=== PATIENT | female | born 1990 | race Caucasian/White ===

== ENCOUNTER 2022-06-11 12:41 | Emergency (ER) | payer BC, SELFPAY ==
[2022-06-11 13:07] VITALS: BP 120/94; PULSE 117; RESP 16; O2SAT 100; BMI 24.9
--- NOTE | 2022-06-11 13:23 | CRLHL7_ITS ---
For Patients: As a result of the Century Cures Act, medical imaging exams and procedure reports are released immediately into your electronic medical record. You may view this report before your referring provider. If you have questions, please contact your health care provider. INDICATION: Left flank pain. TECHNIQUE: CT abdomen and pelvis without contrast. COMPARISON: None. FINDINGS: Lower chest: Unremarkable. Liver: Normal in size and attenuation. No suspicious masses. Gallbladder and bile ducts: Multiple gallbladder stones. No inflammation or biliary dilatation. Pancreas: Unremarkable. No mass or inflammation. Spleen: Normal in size. No masses. Adrenal glands: Normal in size. No nodules. Kidneys: Single tiny nonobstructive stone in the left kidney. No ureteral stone and no hydronephrosis. GI tract: Unremarkable. Normal in caliber. No sign of mass or inflammation. Normal appendix. Vasculature: Abdominal aorta is normal in caliber. Lymph nodes: No lymphadenopathy. Peritoneum/Abdominal Wall: Unremarkable. No sign of mass or infiltration. No free air or significant free fluid. Pelvis: Unremarkable. No pelvic masses. Bones: Unremarkable for age. IMPRESSION: Single tiny nonobstructive stone in the left kidney. No ureteral stone and no hydronephrosis. Remainder of the exam is unremarkable. No other finding to explain left flank pain. Please note that all CT scans at this facility use dose modulation, iterative reconstruction, and/or weight-based dosing when appropriate to reduce radiation dose to as low as reasonably achievable. Dictated by Guy Akhtar MD @ 06/11/2022 2:58:46 PM (Electronically Signed)
[2022-06-11 13:30] VITALS: BP 117/89; PULSE 105; RESP 14; O2SAT 98
--- NOTE | 2022-06-11 13:36 | ED_ITS ---
HPI - General Adult General Date Seen: 06/11/22 Chief complaint: Abdominal Pain Stated complaint: LT side abdominal and back pain Time Seen by Provider: 06/11/22 13:07 Source: patient History of Present Illness HPI narrative: The patient is a 32-year-old woman who presents for evaluation of left flank pain. She says she got up this morning and went to the bathroom, felt fine until she got back to the bed at which time she developed left flank pain which she rates as severe. It radiates somewhat down to the left mid abdomen. She has never had pain like this before. She denies any urinary symptoms. No fevers. She does not have any nausea or vomiting although she said she felt somewhat lightheaded because the pain was so bad. She did not have syncope. She does not have shortness of breath but it does feel somewhat hard to breathe when the pain is severe. It hurts worse to lay down and to move around, it feels best if she sitting still. She has not had any bowel changes. She has on the Depo shot for control, has no concerns about . Related Data Home Medications Medication Instructions Recorded Confirmed No Known Home Medications 06/11/22 06/11/22 Allergies Allergy/AdvReac Type Severity Reaction Status Date / Time No Known Allergies Allergy Unknown Verified 02/10/22 08:43 Review of Systems Status of ROS: Reports: 10 or more systems reviewed and unremarkable except as noted in History and below [facility] Medical History History of abnormal cervical Pap smear Surgical History History of D&C Family History Other Diabetes Social History Smoking Status: Current every day smoker What tobacco products do you use: cigarettes Do you use any of these nicotine containing products: None Second hand tobacco smoke exposure: No How often do you have a drink containing alcohol: monthly or less How many standard drinks containing alcohol do you have on a typical day: 1 or 2 AUDIT-C Alcohol total score: 1 Non-prescribed substance use: denies use service: No Exam Narrative: Exam Narrative: Vital signs as noted above. In general, an alert, well-appearing patient. She Head: Normocephalic, atraumatic. Eyes: Pupils are equal reactive. Extraocular movements are full. Conjunctivae are normal. ENT: Mucous membranes are moist. Throat is normal. Neck: Supple without lymphadenopathy. Heart: Regular rate and rhythm. No murmur or rub. Lungs: Clear bilaterally. No increased work of breathing, crackles or wheezes. Back: No CVA tenderness, no reproducible left flank tenderness to palpation. Abdomen: Soft and nontender. No organomegaly. Extremities: Well perfused. No edema. No calf tenderness. Pulses intact. Neurologic: Patient is alert and oriented to person and place. Speech is fluent. Face is symmetric. Moves all extremities equally. Affect: Normal. Skin: Warm and dry. Well perfused. Const: Vital Signs, click to edit/add: Vital Signs - 24 hr 06/11/22 13:07 Pulse Rate [Left P ulse Oximeter] 117 H Respiratory Rate 16 Blood Pressure [Ri ght Upper Arm] 120/94 H Pulse Oximetry 100 Oxygen Delivery Me thod Room Air Course Course Hospital Course: We will go ahead and place an IV and give Toradol to start for pain. She is not able to give a urine sample right now but understands will want to get that when she is able to. Pain is somewhat atypical for kidney stone in that it gets worse when she moves, but she does not have reproducible external pain so it is hard to call this musculoskeletal for certain. We will go ahead and get some labs and get a CT scan to rule out kidney stone, get a urine to rule out other urinary causes. Certainly does not look toxic, she is afebrile. She is mildly tachycardic. We will give some IV fluids and this may improve with pain control. Pain is somewhat improved although not resolved with Toradol. She had her CT scan without contrast which I reviewed. Interestingly, she does have a tiny stone in left kidney but I do not see a ureteral stone or any evidence of hydronephrosis. I do not see any other findings on the CT. It was ultimately read by Radiology as negative aside from that small renal stone. Her labs are all normal, urinalysis is negative without evidence of infection. I did do a D- dimer given the proximity to the lung bases and this was negative as well. test was negative. Overall, given the strong correlation of pain with movement, I think this is likely musculoskeletal in nature. I have recommended that we try ibuprofen and Tylenol, add in a muscle relaxer, she can use topical measures such as Biofreeze and ice, and see how she does over the next week or 2. If she is not improving she can follow up with primary care. For acute worsening such as fevers, vomiting, severe uncontrolled pain, return to the emergency department. Vital Signs Vital signs: Initial Vital Signs Temperature Source Temporal Artery Scan 06/11/22 13:07 Pulse Rate 117 H 06/11/22 13:07 Pulse Rhythm 06/11/22 13:07 Pulse Strength 3+ Normal 06/11/22 13:07 Respiratory Rate 16 06/11/22 13:07 Blood Pressure 120/94 H 06/11/22 13:07 Blood Pressure Mean 102 06/11/22 13:07 Blood Pressure Position Sitting 06/11/22 13:07 Pulse Oximetry 100 06/11/22 13:07 Oxygen Delivery Method 06/11/22 13:07 Vital Signs Pulse Rate 117 H 06/11/22 13:07 Respiratory Rate 16 06/11/22 13:07 Blood Pressure 120/94 H 06/11/22 13:07 Pulse Oximetry 100 06/11/22 13:07 Oxygen Delivery Method 06/11/22 13:07 Pulse Rate 117 H 06/11/22 13:07 Respiratory Rate 16 06/11/22 13:07 Blood Pressure 120/94 H 06/11/22 13:07 Pulse Oximetry 100 06/11/22 13:07 Oxygen Delivery Method 06/11/22 13:07 Medical Decision Making Lab Data Labs: Lab Results 06/11/22 06/11/22 06/11/22 Range/Units 13:50 13:50 13:50 WBC 7.84 (4.50-11.00) K/uL RBC 4.86 (4.00-5.20) m/uL Hgb 14.7 (12.0-16.0) gm/dL Hct 45.0 (33.0-51.0) % MCV 93 (80-100) fL MCH 30 (26-34) pg MCHC 33 (32-36) gm/dL RDW Coeff of Juanito 12.5 (11.5-15.5) % Plt Count 315 (140-440) K/uL Neut % (Auto) 68.8 (42.0-72.0) % Lymph % (Auto) 23.3 (20-44) % [place] % (Auto) 5.5 (0.0-11.0) % Eos % (Auto) 1.9 (0.0-7.0) % Baso % (Auto) 0.4 (0.0-3.0) % Neut # (Auto) 5.39 (1.7-7.0) K/uL Lymph # (Auto) 1.83 (0.90-2.90) K/uL [place] # (Auto) 0.40 (0.00-0.90) K/UL Eos # (Auto) 0.15 (0.00-0.50) K/uL Baso # (Auto) 0.03 (0.00-0.30) K/uL Abs Immat Gran (auto) 0.01 (0.00-0.30) K/uL Imm/Tot Granulo (auto) 0.1 % D-Dimer Quant (PE/DVT) < 0.27 (0.00-0.50) ug/ml Sodium 141 (135-149) mmol/L Potassium 4.2 (3.6-5.1) mmol/L Chloride 109 (96-114) mmol/L Carbon Dioxide 21 (20-32) mmol/L BUN 8 (5-24) mg/dL Creatinine 0.8 (0.5-1.5) mg/dL Estimated Creat Clear 86.37 Estimated GFR 100 ml/min Glucose 92 (60-115) mg/dL Calcium 9.4 (8.4-10.6) mg/dL C-Reactive Protein < 0.5 L (0.5-1.0) mg/dL Urine Color (Yellow) Urine Appearance (Clear) Urine pH (5.0-8.5) Ur Specific [place] (1.000-1.030) Urine Protein (Negative) Urine Glucose (UA) (Negative) Urine Ketones (Negative) Urine Blood (Negative) Urine Nitrite (Negative) Urine Bilirubin (Negative) Urine Urobilinogen (0.2-1.0) Ur Leukocyte Esterase (Negative) Urine RBC (0-2) Urine WBC (0-5) Ur Squamous Epith Cells (None-Few) Urine Bacteria (None) 06/11/22 Range/Units 14:20 WBC (4.50-11.00) K/uL RBC (4.00-5.20) m/uL Hgb (12.0-16.0) gm/dL Hct (33.0-51.0) % MCV (80-100) fL MCH (26-34) pg MCHC (32-36) gm/dL RDW Coeff of [place]ito (11.5-15.5) % Plt Count (140-440) K/uL Neut % (Auto) (42.0-72.0) % Lymph % (Auto) (20-44) % [place] % (Auto) (0.0-11.0) % Eos % (Auto) (0.0-7.0) % Baso % (Auto) (0.0-3.0) % Neut # (Auto) (1.7-7.0) K/uL Lymph # (Auto) (0.90-2.90) K/uL [place] # (Auto) (0.00-0.90) K/UL Eos # (Auto) (0.00-0.50) K/uL Baso # (Auto) (0.00-0.30) K/uL Abs Immat Gran (auto) (0.00-0.30) K/uL Imm/Tot Granulo (auto) % D-Dimer Quant (PE/DVT) (0.00-0.50) ug/ml Sodium (135-149) mmol/L Potassium (3.6-5.1) mmol/L Chloride (96-114) mmol/L Carbon Dioxide (20-32) mmol/L BUN (5-24) mg/dL Creatinine (0.5-1.5) mg/dL Estimated Creat Clear Estimated GFR ml/min Glucose (60-115) mg/dL Calcium (8.4-10.6) mg/dL C-Reactive Protein (0.5-1.0) mg/dL Urine Color Yellow (Yellow) Urine Appearance Clear (Clear) Urine pH 5.5 (5.0-8.5) Ur Specific [place] 1.015 (1.000-1.030) Urine Protein Negative (Negative) Urine Glucose (UA) Negative (Negative) Urine Ketones Negative (Negative) Urine Blood Negative (Negative) Urine Nitrite Negative (Negative) Urine Bilirubin Negative (Negative) Urine Urobilinogen 0.2 (0.2-1.0) Ur Leukocyte Esterase Negative (Negative) Urine RBC 0-2 (0-2) Urine WBC 0-2 (0-5) Ur Squamous Epith Cells None (None-Few) Urine Bacteria None (None) Discharge Plan Discharge Clinical Impression: Back pain Patient Disposition: Home, Self-Care Condition: Improved Instructions: Back Pain (ED) Additional Instructions: Ibuprofen 400 mg plus Tylenol 1000 mg 3 times daily with food. Muscle relaxer as needed. Other measures such as massage, ice, Biofreeze may be helpful as needed. Anticipate gradual improvement over the next 1-2 weeks. Primary care follow-up if not improving as anticipated. Return to the ER for acute worsening such as severe uncontrolled pain, fevers, vomiting, or other new symptoms. Prescriptions: No Action No Known Home Medications Follow Up/Referrals: Fredy Huston MD [Primary Care Provider] - Stand Alone Forms: [employer] Info Instructions
[2022-06-11] MEDS: 0.9 % SODIUM CHLORIDE 1000 ml 1,000 ML IV (13:56)
[2022-06-11] MEDS: KETOROLAC 15 MG/ML inj IVP (13:57)
[2022-06-11 14:00] VITALS: BP 125/89; PULSE 101; RESP 16; O2SAT 98
[2022-06-11 14:06] LABS: Basophils Absolute Auto 0.03 K/uL (0.00-0.30); Basophils Percent Auto 0.4 % (0.0-3.0); Eosinophils Absolute Auto 0.15 K/uL (0.00-0.50); Eosinophils Percent Auto 1.9 % (0.0-7.0); Hemoglobin* 14.7 gm/dL (12.0-16.0); Immature Granulocytes Abs Auto 0.01 K/uL (0.00-0.30); Immature Granulocytes Pct Auto 0.1 %; Lymphocytes Absolute Auto 1.83 K/uL (0.90-2.90); Lymphocytes Percent Auto 23.3 % (20-44); Mean Corpuscular HGB Conc 33 gm/dL (32-36); Mean Corpuscular Hemoglobin 30 pg (26-34); Mean Corpuscular Volume 93 fL (80-100); Monocytes Percent Auto 5.5 % (0.0-11.0); Neutrophils Absolute Auto 5.39 K/uL (1.7-7.0); Neutrophils Percent Auto 68.8 % (42.0-72.0); Platelet Count* 315 K/uL (140-440); RDW Coefficient of Variation % 12.5 % (11.5-15.5); Red Blood Count 4.86 m/uL (4.00-5.20); White Blood Count* 7.84 K/uL (4.50-11.00)
[2022-06-11 14:07] LABS: Slide Review Reflex No
[2022-06-11 14:30] VITALS: BP 125/87; PULSE 98; RESP 14; O2SAT 99
[2022-06-11 14:31] LABS: Chloride* 109 mmol/L (96-114)
[2022-06-11 14:32] LABS: Potassium* 4.2 mmol/L (3.6-5.1); Sodium* 141 mmol/L (135-149)
[2022-06-11 14:34] LABS: Creatinine* 0.8 mg/dL (0.5-1.5); Est. Creatinine Clearance* 86.37; Estimated Glomerular Filt Rate 100 ml/min
[2022-06-11 14:35] LABS: Blood Urea Nitrogen* 8 mg/dL (5-24); Carbon Dioxide* 21 mmol/L (20-32); D Dimer Quantitative* < 0.27 ug/ml (0.00-0.50)
[2022-06-11 14:36] LABS: Calcium* 9.4 mg/dL (8.4-10.6); Glucose* 92 mg/dL (60-115)
[2022-06-11 14:42] LABS: Appearance Urine Clear (Clear); Bilirubin Urine Negative (Negative); Blood Urine Negative (Negative); Color Urine Yellow (Yellow); Glucose Urine Negative (Negative); Ketones Urine Negative (Negative); Leukocyte Esterase Urine Negative (Negative); Nitrite Urine Negative (Negative); Protein Urine Negative (Negative); Specific Gravity Urine 1.015 (1.000-1.030); Urobilinogen Urine 0.2 (0.2-1.0); pH Urine 5.5 (5.0-8.5)
[2022-06-11 14:42] LABS: C Reactive Protein* < 0.5 mg/dL (0.5-1.0)
[2022-06-11 14:55] LABS: RBC Urine 0-2 (0-2); WBC Urine 0-2 (0-5)
[2022-06-11 15:00] VITALS: BP 123/79; PULSE 98; RESP 14; O2SAT 99
[2022-06-11 18:55] LABS: Ur HCG Qualitative* Negative (Negative)
== END 2022-06-11 15:28 | disposition home or self-care (01) ==
PROVIDERS: Emergency Provider Emergency Medicine; PCP Family Medicine
DX: M54.9 Dorsalgia, unspecified (principal)
CPT/HCPCS: 36415; 74176; 80048; 81001; 81025; 85025; 85379; 86140; 96374; 99284; J1885; J7030

== ENCOUNTER 2023-08-25 07:41 | Emergency (ER) | payer MEDICAID, SELFPAY ==
[2023-08-25 07:49] VITALS: BP 141/110; PULSE 109; RESP 18; TEMP 36.6; O2SAT 96; BMI 23.3
--- NOTE | 2023-08-25 07:50 | ED.GENADULT ---
HPI - General Adult General Chief complaint: Abdominal Pain Stated complaint: abdominal pain Time Seen by Provider: 08/25/23 07:50 History of Present Illness HPI narrative: 33-YEAR-OLD WHITE FEMALE WHO IS GENERALLY HEALTHY, SHE HAS HAD A D&C THE PAST, IS ON THE DEPO-PROVERA SHOT AND IT DENIES , PRESENTS WITH 3 DAY HISTORY OF EPIGASTRIC DISCOMFORT VOMITING, no blood in her vomitus, no diarrhea. Patient has not had any ulcer history, does not take a lot of NSAIDs. She has not had similar symptoms in the past. She has had no fever chills. She has had no blood in her stool or black stools. The patient is not lightheaded or dizzy, does feel generally nauseated. Has been vomiting regularly for a couple of days. Worse when she lays down she gets some abdominal discomfort, better when she takes a hot shower. Related Data Home Medications Medication Instructions Recorded Confirmed medroxyprogesterone 150 mg/mL 150 mg IM [id number] 12/21/22 12/21/22 intramuscular suspension (Depo-Provera) Allergies Allergy/AdvReac Type Severity Reaction Status Date / Time No Known Allergies Allergy Unknown Verified 12/21/22 14:19 Review of Systems Status of ROS: Reports: 6 or more systems reviewed and unremarkable except as noted in History and below [facility] Medical History History of abnormal cervical Papanicolaou smear ?Z87.42 - Personal history of other diseases of the female genital tract (ICD-10) Surgical History Status post tonsillectomy and adenoidectomy (08/06/10) ?Z90.89 - Acquired absence of other organs (ICD-10) History of dilation and curettage ?Z98.890 - Other specified postprocedural states (ICD-10) History of D&C ?Z98.890 - Other specified postprocedural states (ICD-10) Family History Other Diabetes Social History Smoking Status: Current every day smoker What tobacco products do you use: cigarettes Do you use any of these nicotine containing products: None Second hand tobacco smoke exposure: No How often do you have a drink containing alcohol: monthly or less How many standard drinks containing alcohol do you have on a typical day: 1 or 2 AUDIT-C Alcohol total score: 1 Non-prescribed substance use: denies use service: No Exam Narrative: Exam Narrative: Objective: Patient is alert orient x3 no distress, no jaundice in the eyes Neck is supple Chest clear Heart regular Abdomen benign soft nontender no mass or peritonitis Extremities are no edema neurologic nonfocal Const: Vital Signs, click to edit/add: Vital Signs - 24 hr 08/25/23 07:49 08/25/23 08:24 08/25/23 08:24 Temperature 97.8 F Pulse Rate 79 Pulse Rate [Right Pulse Oximeter] 109 H Respiratory Rate 18 Blood Pressure [Ri ght Upper Arm] 141/110 H 129/70 Pulse Oximetry 96 96 Oxygen Delivery Me thod Room Air 08/25/23 09:00 08/25/23 10:00 08/25/23 11:00 Temperature Pulse Rate 100 107 H 88 Pulse Rate [Right Pulse Oximeter] Respiratory Rate Blood Pressure [Ri ght Upper Arm] Pulse Oximetry 100 98 98 Oxygen Delivery Me thod 08/25/23 12:00 Temperature Pulse Rate 87 Pulse Rate [Right Pulse Oximeter] Respiratory Rate Blood Pressure [Ri ght Upper Arm] Pulse Oximetry 94 Oxygen Delivery Me thod Course Vital Signs Vital signs: Initial Vital Signs Temperature 97.8 F 08/25/23 07:49 Temperature Source Temporal Artery Scan 08/25/23 07:49 Pulse Rate 109 H 08/25/23 07:49 Respiratory Rate 18 08/25/23 07:49 Blood Pressure 141/110 H 08/25/23 07:49 Blood Pressure Mean 120 H 08/25/23 07:49 Blood Pressure Position Sitting 08/25/23 07:49 Pulse Oximetry 96 08/25/23 07:49 Oxygen Delivery Method Room Air 08/25/23 07:49 Vital Signs Temperature 97.8 F 08/25/23 07:49 Pulse Rate 109 H 08/25/23 07:49 Respiratory Rate 18 08/25/23 07:49 Blood Pressure 141/110 H 08/25/23 07:49 Pulse Oximetry 96 08/25/23 07:49 Oxygen Delivery Method Room Air 08/25/23 07:49 Temperature 97.8 F 08/25/23 07:49 Pulse Rate 87 08/25/23 12:00 Respiratory Rate 18 08/25/23 07:49 Blood Pressure 129/70 08/25/23 08:24 Pulse Oximetry 94 08/25/23 12:00 Oxygen Delivery Method Room Air 08/25/23 07:49 Medications Administered Medications: Discontinued Medications Generic Name Dose Route Start Last Admin Trade Name Amada PRN Reason Stop Dose Admin Hydromorphone HCl 1 mg 08/25/23 11:24 08/25/23 11:36 Hydromorphone 0.5 Mg/0.5 Ml Inj IVP 08/25/23 11:25 1 mg ONCE ONE Administration Sodium Chloride 1,000 mls @ 6,000 mls/hr 08/25/23 08:00 08/25/23 09:37 0.9 % Sodium Chloride 1000 Ml IV 08/25/23 08:09 Infused .Q10M OSCAR Infusion Lorazepam 0.5 mg 08/25/23 07:48 08/25/23 08:22 Lorazepam 2 Mg/Ml Inj IVP 08/25/23 07:49 0.5 mg ONCE ONE Administration Ondansetron HCl 4 mg 08/25/23 07:48 08/25/23 08:22 Ondansetron 2 Mg/Ml Inj IVP 08/25/23 07:49 4 mg ONCE ONE Administration Pantoprazole Sodium 40 mg 08/25/23 07:53 08/25/23 08:22 Pantoprazole Sodium 40 Mg Inj IVP 08/25/23 07:54 40 mg ONCE ONE Administration Medical Decision Making [facility] Narrative Medical decision making narrative: 33-year-old female with Depo-Provera injections, who presents with 3 day history of abdominal pain somewhat positional, no palpable findings or surgical changes on her abdominal exam. I think at this point would be appropriate to check her labs, IV fluid, IV Zofran, Protonix. Disposition pending findings above, rule out gastritis, enteritis. Addendum 9:18 a.m.: The patient has markedly elevated liver function tests, hepatitis acute battery will be drawn. She will get a right upper quadrant ultrasound as well. Surgical consult as needed. Addendum 9:52 a.m.: The patient has multiple gallstones, common duct stones, elevated alk-phos another liver function test, bili is about 9. Discussed with our general surgeon who feels she needs ERCP and I would agree. Will attempt to make arrangements at [facility] for ERCP, we could possibly see the patient back after the completion of her procedure if we could arrange that I know [place] has been on magenta status. Addendum 12:06 p.m.: The patient has been set up for endoscopy at [facility] . Dr. subramanian would be the doctor performing the procedure. We would then take the patient back at completion for hospitalization and probable cholecystectomy. This has been discussed with Dr. Dwyer as well. Lab Data Labs: Lab Results 08/25/23 08/25/23 Range/Units 08:05 Unknown WBC 8.87 (4.50-11.00) K/uL RBC 4.92 (4.00-5.20) m/uL Hgb 15.0 (12.0-16.0) gm/dL Hct 44.6 (33.0-51.0) % MCV 91 (80-100) fL MCH 31 (26-34) pg MCHC 34 (32-36) gm/dL RDW Coeff of Juanito 12.2 (11.5-15.5) % Plt Count 300 (140-440) K/uL Neut % (Auto) 79.1 H (42.0-72.0) % Lymph % (Auto) 11.8 L (20-44) % [place] % (Auto) 7.6 (0.0-11.0) % Eos % (Auto) 1.1 (0.0-7.0) % Baso % (Auto) 0.2 (0.0-3.0) % Neut # (Auto) 7.00 (1.7-7.0) K/uL Lymph # (Auto) 1.00 (0.90-2.90) K/uL [place] # (Auto) 0.70 (0.00-0.90) K/UL Eos # (Auto) 0.10 (0.00-0.50) K/uL Baso # (Auto) 0.02 (0.00-0.30) K/uL Abs Immat Gran (auto) 0.02 (0.00-0.30) K/uL Imm/Tot Granulo (auto) 0.2 % Sodium 137 (135-149) mmol/L Potassium 3.5 L (3.6-5.1) mmol/L Chloride 105 (96-114) mmol/L Carbon Dioxide 20 (20-32) mmol/L Anion Gap 12 (7-15) mEq/L BUN 8 (5-24) mg/dL Creatinine 0.9 (0.5-1.5) mg/dL Estimated Creat Clear 76.06 Estimated GFR 86 ml/min Glucose 110 (60-115) mg/dL Calcium 9.4 (8.4-10.6) mg/dL Total Bilirubin 9.5 H (0.1-1.5) mg/dL Direct Bilirubin 7.4 H (0.0-0.5) mg/dL AST 217 H (12-35) U/L ALT 295 H (4-35) U/L Alkaline Phosphatase 230 H (40-150) U/L C-Reactive Protein 1.9 H (0.5-1.0) mg/dL Total Protein 7.8 (6.0-8.3) g/dL Albumin 4.6 (3.3-5.0) g/dL Amylase 87 (18-89) U/L HCG, Qual Negative (Negative) SARS-CoV-2 (PCR) Negative SARS-CoV-2 (Negative) Influenza Type A (PCR) Negative PCR FLU A (Negative) Influenza Type B (PCR) Negative PCR FLU B (Negative) RSV (PCR) Negative PCR RSV (Negative) Discharge Plan Discharge Clinical Impression: Nausea & vomiting, Choledocholithiasis Patient Disposition: Xfer Other Additional Instructions: Patient needs ERCP. Arrangements were made for transfer for ERCP. Prescriptions: No Action medroxyprogesterone [Depo-Provera] 150 mg/mL suspension 150 mg IM [id number] Stand Alone Forms: [employer] Info Instructions
[2023-08-25 08:15] LABS: Basophils Absolute Auto 0.02 K/uL (0.00-0.30); Basophils Percent Auto 0.2 % (0.0-3.0); Eosinophils Percent Auto 1.1 % (0.0-7.0); Hematocrit 44.6 % (33.0-51.0); Immature Granulocytes Abs Auto 0.02 K/uL (0.00-0.30); Immature Granulocytes Pct Auto 0.2 %; Lymphocytes Percent Auto 11.8 % (20-44); Mean Corpuscular HGB Conc 34 gm/dL (32-36); Mean Corpuscular Hemoglobin 31 pg (26-34); Mean Corpuscular Volume 91 fL (80-100); Monocytes Percent Auto 7.6 % (0.0-11.0); Neutrophils Percent Auto 79.1 % (42.0-72.0); Platelet Count* 300 K/uL (140-440); RDW Coefficient of Variation % 12.2 % (11.5-15.5); Red Blood Count 4.92 m/uL (4.00-5.20); White Blood Count* 8.87 K/uL (4.50-11.00)
[2023-08-25 08:16] LABS: Slide Review Reflex No
[2023-08-25] MEDS: ONDANSETRON 2 MG/ML inj 4 MG IVP (08:22)
[2023-08-25] MEDS: PANTOPRAZOLE SODIUM 40 MG INJ IVP (08:22)
[2023-08-25] MEDS: LORazepam 2 MG/ML inj 0.5 MG IVP (08:22)
[2023-08-25] MEDS: 0.9 % SODIUM CHLORIDE 1000 ml 1,000 ML 6000 ML IV (08:22)
[2023-08-25 08:23] LABS: Chloride* 105 mmol/L (96-114); Potassium* 3.5 mmol/L (3.6-5.1); Sodium* 137 mmol/L (135-149)
[2023-08-25 08:24] VITALS: BP 129/70; PULSE 79; O2SAT 96
[2023-08-25 08:25] LABS: Amylase* 87 U/L (18-89)
[2023-08-25 08:26] LABS: Anion Gap 12 mEq/L (7-15); Blood Urea Nitrogen* 8 mg/dL (5-24); Carbon Dioxide* 20 mmol/L (20-32); Creatinine* 0.9 mg/dL (0.5-1.5); Est. Creatinine Clearance* 76.06; Estimated Glomerular Filt Rate 86 ml/min
[2023-08-25 08:27] LABS: Calcium* 9.4 mg/dL (8.4-10.6); Glucose* 110 mg/dL (60-115)
[2023-08-25 08:29] LABS: C Reactive Protein* 1.9 mg/dL (0.5-1.0)
[2023-08-25 08:42] LABS: Albumin* 4.6 g/dL (3.3-5.0)
[2023-08-25 08:44] LABS: Bilirubin Direct* 7.4 mg/dL (0.0-0.5); Bilirubin Total* 9.5 mg/dL (0.1-1.5)
[2023-08-25 08:45] LABS: Alanine Aminotransferase* 295 U/L (4-35); Alkaline Phosphatase* 230 U/L (40-150); Aspartate Amino Transferase* 217 U/L (12-35); Total Protein* 7.8 g/dL (6.0-8.3)
[2023-08-25 08:54] LABS: PCR FLU A Negative PCR FLU A (Negative); PCR FLU B Negative PCR FLU B (Negative); PCR RSV Negative PCR RSV (Negative); SARS PCR* Negative SARS-CoV-2 (Negative)
[2023-08-25 08:55] LABS: HCG Qualitative Serum* Negative (Negative)
[2023-08-25 09:00] VITALS: PULSE 100; O2SAT 100
--- NOTE | 2023-08-25 09:04 | CRLHL7_ITS ---
For Patients: As a result of the Century Cures Act, medical imaging exams and procedure reports are released immediately into your electronic medical record. You may view this report before your referring provider. If you have questions, please contact your health care provider. INDICATION: Jaundice TECHNIQUE: Conventional two-dimensional grayscale ultrasound of the right upper quadrant. COMPARISON: Abdomen/pelvis CT of 06/11/2022 FINDINGS: Stones are again demonstrated in the gallbladder. The gallbladder wall is mildly thickened to 3 mm. No pericholecystic fluid is noted. The intrahepatic bile ducts are mildly enlarged. The common duct is enlarged to 9 mm and several stones are noted in the common duct. The liver is normal in size, shape and echogenicity. The pancreas is within normal limits. The right kidney is unremarkable. The visualized portion of the abdominal aorta and inferior vena cava are negative. IMPRESSION: Cholelithiasis and choledocholithiasis. Dictated by Sandor Schmitt MD @ 08/25/2023 10:33:08 AM (Electronically Signed)
[2023-08-25 10:00] VITALS: PULSE 107; O2SAT 98
[2023-08-25 11:00] VITALS: PULSE 88; O2SAT 98
[2023-08-25] MEDS: HYDROmorphone 0.5 mg/0.5 ml inj 1 MG IVP (11:36)
[2023-08-25 12:00] VITALS: PULSE 87; O2SAT 94
--- NOTE | 2023-08-25 13:30 | ED.NURSE ---
pt left for ERCP at 1300. plan is to return to [facility] ED when completed
[2023-08-26 18:24] LABS: Hep A Ab, IgM Negative (Negative); Hep B Core Ab, IgM Negative (Negative); Hep B Surface Antigen Negative (Negative); Hep C Ab by CIA Index 0.08 IV; Hep C Ab by CIA Interp Negative (Negative)
== END 2023-08-25 13:38 | disposition other institution (70) ==
PROVIDERS: Emergency Provider Family Medicine; PCP Family Medicine
DX: R11.2 Nausea with vomiting, unspecified (principal); K80.50 Calculus of bile duct without cholangitis or cholecystitis without obstruction
CPT/HCPCS: 36415; 76705; 80048; 80074; 80076; 82150; 84703; 85025; 86140; 87631; 96374; 96375; 99284; C9113; J1170; J2060; J2405; J7030

== ENCOUNTER 2023-08-25 12:34 | Outpatient (CLI) | payer MEDICAID, SELFPAY | END 2023-09-05 23:56 | disposition home or self-care (01) | LOC: AMB 09-06 00:06 | PROVIDERS: PCP Family Medicine; Visit Provider Family Medicine | DX: R10.9 Unspecified abdominal pain (principal) | CPT/HCPCS: A0425; A0428 ==

== ENCOUNTER 2023-08-25 17:30 | Outpatient (CLI) | payer MEDICAID, SELFPAY | END 2023-08-25 17:31 | disposition home or self-care (01) | LOC: AMB 09-04 07:12 | PROVIDERS: PCP Family Medicine; Visit Provider Family Medicine | DX: R10.9 Unspecified abdominal pain (principal) | CPT/HCPCS: A0425; A0428; A0434 ==

== ENCOUNTER 2023-08-25 18:58 | Day surgery (SDC) | payer MEDICAID, SELFPAY ==
--- NOTE | 2023-08-25 19:24 | PM.GSHP ---
History of Present Illness History of Present Illness Date Seen: 08/25/23 Chief complaint: Surgery AM Narrative: The patient is a 33-year-old female who presented to the emergency department today with a 3 day history of epigastric discomfort, nausea and vomiting. She never had previous symptoms. No change in bowel habits. No fevers. Her pain and symptoms are worse when she lays down. A hot shower has helped her discomfort. In the emergency department workup included an ultrasound of the abdomen which showed common bile duct stones as well as biliary dilatation and gallbladder stones with gallbladder wall thickening. She was noted to have a bilirubin of 9. She was transferred to [facility] where she underwent ERCP multiple stones were removed from her common bile duct. She was then transferred back to our facility for cholecystectomy. She currently feels fine. No further abdominal discomfort. Her sister and significant other states that her jaundice has already improved. Her sister states that she has had the symptoms before, however the patient states this only occurred 1 time several years ago when she was told she had gallstones but then never had any other symptoms since. [facility] Medical History (Updated 08/25/23 @ 19:28 by Belen Dwyer MD) Tobacco abuse ?Z72.0 - Tobacco use (ICD-10) Eczema ?L30.9 - Dermatitis, unspecified (ICD-10) Anxiety ?F41.9 - Anxiety disorder, unspecified (ICD-10) History of abnormal cervical Papanicolaou smear ?Z87.42 - Personal history of other diseases of the female genital tract (ICD-10) Surgical History Status post tonsillectomy and adenoidectomy (08/06/10) ?Z90.89 - Acquired absence of other organs (ICD-10) History of dilation and curettage ?Z98.890 - Other specified postprocedural states (ICD-10) History of D&C ?Z98.890 - Other specified postprocedural states (ICD-10) Family History (Updated 08/25/23 @ 19:27 by Belen Dwyer MD) Other Diabetes Social History (Updated 08/25/23 @ 19:27 by Belen Dwyer MD) Narrative: She smokes daily. She is currently not working. She drinks alcohol occasionally. Smoking Status: Current every day smoker What tobacco products do you use: cigarettes Do you use any of these nicotine containing products: None Second hand tobacco smoke exposure: No How often do you have a drink containing alcohol: monthly or less How many standard drinks containing alcohol do you have on a typical day: 1 or 2 AUDIT-C Alcohol total score: 1 Non-prescribed substance use: denies use service: No Meds Home Medications and Allergies Home Medications Medication Instructions Recorded Confirmed Type medroxyprogesterone 150 mg/mL 150 mg IM [id number] 12/21/22 12/21/22 History intramuscular suspension (Depo-Provera) Allergies Allergy/AdvReac Type Severity Reaction Status Date / Time No Known Allergies Allergy Unknown Verified 12/21/22 14:19 Exam Narrative: Exam Narrative: General appearance: Alert, cooperative, and in no distress Eyes: PERRLA, eye lids clear, and sclera mildly yellow. HENT Head: Normocephalic Ears: External ears normal Pulmonary: Clear to auscultation bilaterally Cardiovascular Heart: Regular rate and rhythm Extremities: warm and well perfused Gastrointestinal Abdominal: No scars. Large tattoo noted in the right upper quadrant. Abdomen is soft. Nontender. Musculoskeletal: Extremities: Upper: Both upper extremities have normal joint range of motion and intact strength. Lower: Both lower extremities have normal joint range of motion and intact strength. Skin: Normal skin color, texture, and turgor. Neurologic: No focal deficits Psychiatric: Alert, oriented, cooperative, normal affect. Results Results Labs: Labs from this morning show a total bilirubin of 9.5. Direct bilirubin 7.4 AST 217 ALT 295 Alkaline phosphatase 230 CRP 1.9 Abdominal ultrasound report/results: report reviewed and image reviewed Additional studies: US abdomen 08/25/23: FINDINGS: Stones are again demonstrated in the gallbladder. The gallbladder wall is mildly thickened to 3 mm. No pericholecystic fluid is noted. The intrahepatic bile ducts are mildly enlarged. The common duct is enlarged to 9 mm and several stones are noted in the common duct. The liver is normal in size, shape and echogenicity. The pancreas is within normal limits. The right kidney is unremarkable. The visualized portion of the abdominal aorta and inferior vena cava are negative. IMPRESSION: Cholelithiasis and choledocholithiasis. Dictated by Sandor Schmitt MD @ 08/25/2023 10:33:08 AM Assessment and Plan Assessment and plan (1) Choledocholithiasis: Status: Acute (2) Cholelithiasis: Status: Acute (3) Jaundice: Status: Acute Plan The patient is a 33-year-old female who with vladimir lithiasis and who is now status post ERCP for choledocholithiasis. She is feeling much better. Currently having no pain. We discussed biliary anatomy and pathology. I explained to her that it is recommended that she undergo cholecystectomy to prevent further episodes of choledocholithiasis. We discussed the procedure, risks as well as recovery. She is agreeable to proceed. We will plan on surgery in the morning pending repeat labs. I explained that we will want to make sure that she does not have pancreatitis before proceeding to the OR. She can have clear liquids currently, however she should be NPO at midnight.
[2023-08-25 19:29] VITALS: BP 118/83; PULSE 88; RESP 16; TEMP 36.6; O2SAT 98
[2023-08-25] MEDS: LACTATED RINGERS 1000 ML 1,000 ML 125 ML IV (20:59)
[2023-08-25] MEDS: SODIUM CHLORIDE 0.9 % (FLUSH) 10 ML SYRINGE 5 ML IVF (21:05)
[2023-08-25 21:08] VITALS: BP 118/83; PULSE 88; RESP 16; TEMP 36.6; O2SAT 98; BMI 23.3
[2023-08-25 22:55] VITALS: BP 108/62; PULSE 87; RESP 16; TEMP 37.1; O2SAT 96
[2023-08-26] VITALS (16 sets, daily range): BP systolic 102–136; BP diastolic 63–98; PULSE 70–93; RESP 12–18; TEMP 35.8–37.2; O2SAT 93–97
[2023-08-26] MEDS: LACTATED RINGERS 1000 ML 1,000 ML 125 ML IV (04:46)
--- NOTE | 2023-08-26 05:47 | PC.NURSE ---
[id number] Pt arrived via EMS from [facility] post ERCP procedure. No pain, N or V this shift. Tolerated small amounts of clear liquid diet prior to NPO at midnight. Ind in room, voiding without difficulty. anticipate surgery today with Dr Dwyer.
[2023-08-26 06:45] LABS: Basophils Absolute Auto 0.02 K/uL (0.00-0.30); Basophils Percent Auto 0.3 % (0.0-3.0); Eosinophils Absolute Auto 0.08 K/uL (0.00-0.50); Eosinophils Percent Auto 1.3 % (0.0-7.0); Hematocrit 35.7 % (33.0-51.0); Hemoglobin* 11.8 gm/dL (12.0-16.0); Immature Granulocytes Abs Auto 0.01 K/uL (0.00-0.30); Immature Granulocytes Pct Auto 0.2 %; Lymphocytes Absolute Auto 1.61 K/uL (0.90-2.90); Lymphocytes Percent Auto 26.6 % (20-44); Mean Corpuscular HGB Conc 33 gm/dL (32-36); Mean Corpuscular Hemoglobin 30 pg (26-34); Mean Corpuscular Volume 91 fL (80-100); Monocytes Percent Auto 8.9 % (0.0-11.0); Neutrophils Absolute Auto 3.79 K/uL (1.7-7.0); Neutrophils Percent Auto 62.7 % (42.0-72.0); Platelet Count* 226 K/uL (140-440); RDW Coefficient of Variation % 12.2 % (11.5-15.5); Red Blood Count 3.92 m/uL (4.00-5.20); White Blood Count* 6.05 K/uL (4.50-11.00)
[2023-08-26 06:54] LABS: Slide Review Reflex No
[2023-08-26 07:03] LABS: Albumin* 3.2 g/dL (3.3-5.0); Chloride* 108 mmol/L (96-114); Sodium* 136 mmol/L (135-149)
[2023-08-26 07:04] LABS: Potassium* 3.9 mmol/L (3.6-5.1)
[2023-08-26 07:06] LABS: Alanine Aminotransferase* 180 U/L (4-35); Alkaline Phosphatase* 161 U/L (40-150); Anion Gap 5 mEq/L (7-15); Aspartate Amino Transferase* 94 U/L (12-35); Bilirubin Direct* 6.4 mg/dL (0.0-0.5); Bilirubin Total* 8.4 mg/dL (0.1-1.5); Blood Urea Nitrogen* 7 mg/dL (5-24); Calcium* 8.5 mg/dL (8.4-10.6); Carbon Dioxide* 23 mmol/L (20-32); Creatinine* 0.7 mg/dL (0.5-1.5); Est. Creatinine Clearance* 97.79; Estimated Glomerular Filt Rate 116 ml/min; Glucose* 101 mg/dL (60-115); Lipase* 148 U/L (23-300)
[2023-08-26] MEDS: PIPERACILLIN/TAZOBACTAM 3.375 GM INJ IVPB (10:19)
[2023-08-26] MEDS: BUPIVACAINE 0.25% 30 ML INJECTION (10:53)
--- NOTE | 2023-08-26 11:45 | W.ANESCHARGE ---
Anesthesia Charges Start Date/Time Anesthesia Start Date: 08/26/23 Anesthesia Start Time: 10:11 Stop Date/Time Anesthesia Stop Date: 08/26/23 Anesthesia Stop Time: 11:41
--- NOTE | 2023-08-26 12:00 | W.ANESCHARGE ---
Anesthesia Charges Start Date/Time Anesthesia Start Date: 08/26/23 Anesthesia Start Time: 10:11 Stop Date/Time Anesthesia Stop Date: 08/26/23 Anesthesia Stop Time: 11:41
--- NOTE | 2023-08-26 12:16 | P.GSOP_ITS ---
Operative Note Date of procedure: 08/26/23 Pre-op diagnosis: 1. Cholelithiasis 2. Choledocholithiasis status post ERCP 3. Jaundice Post-op diagnosis: Same Type of Procedure: Laparoscopic cholecystectomy Indications: The patient is a 33-year-old female who presented to the emergency department yesterday with jaundice and epigastric pain. Imaging revealed multiple common bile duct stones and she was found to have a bilirubin of 9. She was transferred to an outside facility for ERCP. Multiple stones were extracted. Sphincterotomy was performed. The patient was then transferred back to our hospital for cholecystectomy. This morning, her labs had all improved, however her bilirubin was still quite elevated at 8. Her symptoms had otherwise resolved and therefore we plan to proceed with cholecystectomy. Procedure Description: After discussing the risks and benefits of the procedure, the patient signed informed consent.? The operative site was marked and the patient was brought to the operating room and placed on the operating table in supine position.? Care was taken to pad the patient's pressure points.?? The patient was then intubated/given sedation by anesthesia.?? The operative site was then prepped and draped in the usual sterile fashion.? A time-out was then performed. Entrance to the abdomen was gained via a 5 mm Visiport in the left upper quadrant. The abdomen was insufflated and briefly surveyed for signs of injury. There was none. A 10 mm umbilical port was placed as well as 2 working ports along the right costal margin, all under direct vision. The patient was then placed in reverse Trendelenburg position with the right side up. The gallbladder fundus was grasped and retracted cephalad. The gallbladder was noted to be edematous at the infundibulum. The infundibulum was grasped. A combination of hook cautery and blunt dissection was used to carefully dissect out the cystic artery. A small branch began bleeding. This was clipped. I then dissected out the remainder of the artery and as it was clearly going into the gallbladder, I ligated this with 2 clips proximal 1 clip distal. I then transected the artery with scissors. I was then able to dissect out the duct. There was a fair amount of edema in the tissue about the infundibulum and duct. This was dissected out circumferentially. I took my dissection up along the cystic plate to ensure there were no other structures entering the gallbladder. The duct was then examined. I palpated the duct. There was a stone impacted in it. This was pushed back into the gallbladder. It was noted to be too large for a 5 mm clip. I elected to ligate this using Endoloops. The neck of the gallbladder was grasped. I then divided the duct at the junction of the gallbladder and the neck. I examined the cystic duct stump to ensure there were no other stones. Bile did flow from the cystic duct stump. I then used both an 0 Vicryl and an 0 PDS endoloop to ligate the cystic duct stump. I then removed the gallbladder from the liver bed using cautery. The area was examined and hemostasis appeared excellent. The gallbladder was then removed from the abdomen using an Endo- Catch bag. A small amount of bile which had spilled was suctioned from the abdomen. The ports were removed and the abdomen was desufflated. The umbilical port fascia was closed with 0 Vicryl. The skin was closed with absorbable subcuticular suture. Instrument sponge and needle counts were correct at the end of the case. The patient was then woken and transferred to the PACU in stable condition. ? The patient tolerated the procedure well. Findings: Multiple gallstones with edema about the gallbladder neck, indicating obstruction. Stone impacted in the cystic duct. Anesthesia: GETA Surgeon: Belen Dwyer MD Estimated blood loss (mL): 5 Specimen: Gallbladder Condition: stable Disposition: PACU
[2023-08-26] MEDS: 0.9 % SODIUM CHLORIDE 250 ml IV (14:48)
[2023-08-26] MEDS: PIPERACILLIN/TAZOBACTAM 3.375 GM in 0.9 % SODIUM CHLORIDE Mini-bag 100 ML IVPB (14:48)
--- NOTE | 2023-08-26 16:18 | PM.EN ---
Chart Event Note Date Seen: 08/26/23 Chart Event Note: I visited with patient this morning. Discussed the case with Dr. Dwyer, general surgeon. Dr. Hill will assume care of the patient at this time.
--- NOTE | 2023-08-26 16:59 | PC.NURSE ---
Discharge? Pt alert, oriented, cooperative and pleasant at start of shift. Pt denied pain, SOB, nausea, dizziness. Family at bedside, pt independent in room. NPO at midnight for surgery on 08/26. Pt left floor for surgery at approximately 1000. Pt returned from PACU at approximately 1215. Pt was sedate on arrival, but able to follow commands. Lap sites x 3 CDI. Bear hugger used at pt request. Pt denied pain, nausea, SOB, dizziness. Tolerating RA, regular diet, and fluids. Discharged same day per MD order. IV removed with catheter intact, discharge education provided with verbalized understanding. Pt discharged to home with sister via wheelchair at approximately 1610. ?
== END 2023-08-26 16:10 | disposition home or self-care (01) ==
LOC: SS 19:06 → MEDSURG 19:07
PROVIDERS: PCP Family Medicine; Visit Provider Surgery
PROC: 0FT44ZZ Resection of Gallbladder, Percutaneous Endoscopic Approach (ICD-10-PCS; CPT 47562; principal; 2023-08-26 09:30)
DX: K80.71 Calculus of gallbladder and bile duct without cholecystitis with obstruction (principal); R17 Unspecified jaundice
CPT/HCPCS: 47562; 00790; 36415; 80048; 80076; 83690; 85025; 88304; G0378; J0330; J0665; J1100; J2250; J2405; J2543; J2704; J3010; J7050; J7120

== ENCOUNTER 2023-08-31 08:06 | Outpatient (CLI) | payer MEDICAID, SELFPAY | END 2023-08-31 08:07 | disposition home or self-care (01) | LOC: NFLDREF 08:08 | PROVIDERS: PCP Family Medicine; Visit Provider Surgery | DX: R17 Unspecified jaundice (principal) | CPT/HCPCS: 80076 ==